=== PATIENT | male | born 1995 | race Caucasian/White ===

== ENCOUNTER 2016-06-30 19:23 | Emergency (ER) | payer OTHER ==
[2016-06-30 19:27] VITALS: RESP 20
[2016-06-30] MEDS ORDERED: ONDANSETRON 4 MG/2 ML VIAL IVP ONE (20:03)
[2016-06-30] MEDS ORDERED: NS 1,000 ML IV ONE ×2 (20:03→20:04)
--- NOTE | 2016-06-30 20:10 | EDPHY ---
H & P Smoking Status: Never smoked Time Seen by Provider: 06/30/16 19:39 HPI/ROS: CHIEF COMPLAINT: Nausea, vomiting, diarrhea HISTORY OF PRESENT ILLNESS: 21-year-old male presents to the emergency department by private vehicle complaining of vomiting and diarrhea that began at 3 o'clock this afternoon. The patient was at a music festival in [place], [place] over the weekend and just flew in last evening. Earlier this afternoon he developed vomiting and has vomited approximately 7 times. He has had 8 episodes of watery diarrhea. No blood in his stool. He has felt subjective fevers and chills. Denies abdominal pain. Denies chest pain or difficulty breathing. Denies back pain. Denies any reported trauma. No foreign travel. No known ill contacts. No urinary symptoms. The patient apparently was hyperventilating at home and developed paresthesias to his upper lower extremities as well as around his lips. This is now mostly resolved. He denies dysphagia. Denies any other neurologic symptoms. REVIEW OF SYSTEMS: Constitutional: No fever, no chills. Eyes: No double or blurry vision. ENT: No sore throat. Respiratory: No cough, no shortness of breath. Cardiac: No chest pain. Gastrointestinal: Vomiting, diarrhea as above. No abdominal pain. Genitourinary: No dysuria. Musculoskeletal: No neck or back pain. Skin: No rashes. Neurological: No headache. (Leatha Garcia) Past Medical/Surgical History: Negative (Leatha Garcia) Social History: [employer] student (Leatha Garcia) Physical Exam: General Appearance: Alert, no distress. 126/65, heart rate 98, 100% on room air , afebrile. Eyes: Pupils equal and round. Extraocular motions are all intact. ENT: Mouth: Mucous membranes moist. Respiratory: No wheezing, rhonchi, or rales, lungs are clear to auscultation. Cardiovascular: Regular rate and rhythm. Gastrointestinal: Abdomen is soft and nontender, no masses, no rebound or guarding, bowel sounds normal. No CVA tenderness bilaterally. Neurological: Alert and oriented x 3, cranial nerves II through XII grossly intact Skin: Warm and dry, no rashes. Musculoskeletal: Nontender to palpate along the cervical, thoracic or lumbar spine. Neck is supple. Extremities: Full range of motion and no peripheral edema. Psychiatric: Patient is oriented X 3, there is no agitation. (Leatha Garcia) Constitutional: Initial Vital Signs Temperature (C) 36.4 C 06/30/16 19:24 Heart Rate 98 06/30/16 19:24 Respiratory Rate 20 06/30/16 19:24 Blood Pressure 126/65 H 06/30/16 19:24 O2 Sat (%) 100 06/30/16 19:24 O2 Delivery Mode Room Air Allergies/Adverse Reactions: peanut Allergy (Verified 06/30/16 19:27) tree nut Allergy (Verified 06/30/16 19:27) Home Medications: Medication Instructions Recorded Flovent Diskus 06/30/16 Singulair 06/30/16 Medical Decision Making ED Course/Re-evaluation: 21-year-old male presents to the emergency department with acute gastroenteritis. The patient has no peritoneal signs. I do not think imaging is necessary. Patient was given IV normal saline and IV Zofran. Patient was observed for over 2 hours in the emergency department. He was feeling much better. He is comfortable being discharged home. (Leatha Garcia) I did not see this patient while he was in the emergency department. However his care was discussed with the PA while the patient was in the department. I agree with treatment plan and management (Thien Mallory) Differential Diagnosis: Including but not limited to gastroenteritis, infectious diarrhea, dehydration, acute appendicitis, bowel obstruction (Leatha Garcia) - Data Points Laboratory Results: Laboratory Results 06/30/16 19:59 Medications Given: Discontinued Medications Sodium Chloride (Ns) 1,000 mls @ 0 mls/hr IV ONCE ONE PRN Reason: Wide Open Stop: 06/30/16 20:04 Last Admin: 06/30/16 20:15 Dose: 1,000 mls Sodium Chloride (Ns) 1,000 mls @ 0 mls/hr IV ONCE ONE PRN Reason: Wide Open Stop: 06/30/16 20:05 Last Admin: 06/30/16 20:15 Dose: 1,000 mls Ondansetron HCl (Zofran) 4 mg IVP EDNOW ONE Stop: 06/30/16 20:04 Last Admin: 06/30/16 20:15 Dose: 4 mg Departure - Departure Disposition: Home, Routine, Self-Care Clinical Impression: Acute gastroenteritis Condition: Good Instructions: Gastroenteritis (ED) Additional Instructions: Clear liquids and slowly advance diet as tolerated. Return if you developed fever, recurring vomiting, or if you feel worse in any way. Referrals: RIGOBERTO SEPULVEDA [Medical Doctor] - 1 day, if not improved (Primary care provider mission support specialist)
[2016-06-30 20:30] LABS: ANION GAP 15 mEq/L (8-16); CALCIUM 10.2 mg/dL (8.5-10.4); CARBON DIOXIDE 23 mEq/l (22-31); CHLORIDE 103 mEq/L (97-110); GLOMERULAR FILTRATION RATE > 60; GLUCOSE 104 mg/dL (70-100); POTASSIUM 4.1 mEq/L (3.5-5.2); SODIUM 141 mEq/L (134-144)
[2016-06-30 21:56] VITALS: BP 120/51; PULSE 97; TEMP 98.2; O2SAT 94
== END 2016-06-30 21:56 | disposition home or self-care (01) ==
DX: K52.9 Noninfective gastroenteritis and colitis, unspecified (principal); Z91.010 Allergy to peanuts
CPT/HCPCS: 96374; J2405